=== PATIENT | male | born 1980 | race Caucasian/White ===

== ENCOUNTER 2017-07-13 17:50 | Emergency (ER) | payer MEDICAID ==
[~2017-07-13] VITALS: Ht 185.4 cm; Wt 113.7 kg
[~2017-07-13 17:50] MED LIST: PRED50TA PO
[2017-07-13 17:59] VITALS: BP 153/93
[2017-07-13] MEDS ORDERED: CLIN-79 PO (20:19)
== END 2017-07-13 20:27 | disposition home or self-care (01) ==
LOC: ER 17:50
DX: L02.511 Cutaneous abscess of right hand (principal); F15.10 Other stimulant abuse, uncomplicated; I10 Essential (primary) hypertension; Z86.14 Personal history of Methicillin resistant Staphylococcus aureus infection; Z98.890 Other specified postprocedural states; Z88.0 Allergy status to penicillin; Z79.899 Other long term (current) drug therapy; Z56.0 Unemployment, unspecified
CPT/HCPCS: 99283

== ENCOUNTER 2017-12-23 03:49 | Emergency (ER) | payer MEDICAID ==
[~2017-12-23] VITALS: Ht 185.4 cm; Wt 111.4 kg
[~2017-12-23 03:49] MED LIST changes: +CLIN150C8 PO
[2017-12-23 04:02] VITALS: BP 171/99
[2017-12-23] MEDS ORDERED: proparacaine 0.5% ophthalmic drops 15ml EACHEYE ONE (04:25)
[2017-12-23] MEDS ORDERED: ibuprofen tablet 400 MG TABLET PO ONE (04:25)
[2017-12-23] MEDS ORDERED: erythromycin ophthalmic ointment 1gm tube LEFTEYE ONE (05:20)
== END 2017-12-23 05:56 | disposition home or self-care (01) ==
LOC: ER 03:49
DX: S05.02XA Injury of conjunctiva and corneal abrasion without foreign body, left eye, initial encounter (principal); I10 Essential (primary) hypertension; F15.90 Other stimulant use, unspecified, uncomplicated; Z56.0 Unemployment, unspecified; Z98.890 Other specified postprocedural states; Z88.0 Allergy status to penicillin; Z79.899 Other long term (current) drug therapy; W22.8XXA Striking against or struck by other objects, initial encounter; Y93.01 Activity, walking, marching and hiking; Y92.89 Other specified places as the place of occurrence of the external cause; Y99.9 Unspecified external cause status
CPT/HCPCS: 99283

== ENCOUNTER 2018-05-30 13:43 | Emergency (ER) | payer MEDICAID ==
[~2018-05-30] VITALS: Ht 185.4 cm; Wt 109.0 kg
[2018-05-30 15:16] VITALS: BP 149/97
[2018-05-30 16:45] LABS: HIV ANTIBODY 1&2 RAPID NON-REACTIVE (Neg)
[2018-06-01 15:10] LABS: HEP B CORE AB, IGM Negative (Negative); HEP B CORE AB, TOT Negative (Negative); HEPATITIS C ANTIBODY <0.1 s/co ratio (0.0-0.9)
== END 2018-05-30 15:17 | disposition home or self-care (01) ==
LOC: ER 13:44
DX: S69.82XA Other specified injuries of left wrist, hand and finger(s), initial encounter (principal); I10 Essential (primary) hypertension; F15.90 Other stimulant use, unspecified, uncomplicated; Z56.0 Unemployment, unspecified; Z86.14 Personal history of Methicillin resistant Staphylococcus aureus infection; Z98.890 Other specified postprocedural states; Z88.0 Allergy status to penicillin; Z79.2 Long term (current) use of antibiotics; W27.3XXA Contact with needle (sewing), initial encounter; Y93.89 Activity, other specified; Y92.89 Other specified places as the place of occurrence of the external cause; Y99.8 Other external cause status
CPT/HCPCS: 36415; 86703; 86704; 86705; 86706; 86803; 99283

== ENCOUNTER 2018-11-23 02:27 | Emergency (ER) | payer MEDICAID ==
[~2018-11-23] VITALS: Ht 185.4 cm; Wt 113.6 kg
[~2018-11-23 02:27] MED LIST changes: +CLIN-96 PO
[2018-11-23 02:29] VITALS: BP 157/102
[2018-11-23] MEDS ORDERED: SULF1TAB49 PO (03:04)
== END 2018-11-23 03:45 | disposition home or self-care (01) ==
LOC: ER 02:28
DX: L03.317 Cellulitis of buttock (principal); I10 Essential (primary) hypertension; F15.90 Other stimulant use, unspecified, uncomplicated; F17.200 Nicotine dependence, unspecified, uncomplicated; Z56.0 Unemployment, unspecified; Z98.890 Other specified postprocedural states; Z86.14 Personal history of Methicillin resistant Staphylococcus aureus infection; Z88.0 Allergy status to penicillin; Z79.899 Other long term (current) drug therapy
CPT/HCPCS: 99283

== ENCOUNTER 2019-01-14 16:05 | Emergency (ER) | payer MEDICAID ==
[~2019-01-14] VITALS: Ht 185.4 cm; Wt 100.0 kg
[~2019-01-14 16:05] MED LIST changes: +CLIN-90 PO; -CLIN-96 PO
[2019-01-14] MEDS ORDERED: TETanus/Pertussis (Acell)/Diphther VAC/PF (Tdap-Adult) 0.5ml syringe IMVAC ONE (16:55)
[2019-01-14] MEDS ORDERED: ketorolac trometh inj. 60 MG/2 ML VIAL IM ONE (16:55)
[2019-01-14] MEDS ORDERED: SULF1TAB49 PO (18:51)
[2019-01-14 19:09] VITALS: BP 143/99
== END 2019-01-14 19:10 | disposition home or self-care (01) ==
LOC: ER 16:06
DX: L02.511 Cutaneous abscess of right hand (principal); I10 Essential (primary) hypertension; F17.200 Nicotine dependence, unspecified, uncomplicated; Z98.890 Other specified postprocedural states; Z86.14 Personal history of Methicillin resistant Staphylococcus aureus infection; Z88.0 Allergy status to penicillin; Z79.899 Other long term (current) drug therapy
CPT/HCPCS: 26010; 90471; 90715; 96372; 99283; J1885

== ENCOUNTER 2019-01-31 20:55 | Inpatient (IN) | payer MEDICAID ==
[~2019-01-31] VITALS: Ht 185.4 cm; Wt 111.4 kg
[2019-01-31] MEDS ORDERED: CefTRIAXone/D5W-Rocephin 1gm 50 ML IV ONE (21:45)
[2019-01-31] MEDS ORDERED: vancomycin/NS 1 GM ADD-VANTAGE 250 ML IV ONE (21:45)
[2019-01-31 22:03] LABS: BASOPHILS # (AUTO) 0.1 X10'3 (0-0.2); EOSINOPHILS # (AUTO) 0.4 X10'3 (0-0.9); EOSINOPHILS % (AUTO) 3.1 % (0-6); HEMATOCRIT 41.6 % (42.0-52.0); HEMOGLOBIN 14.1 g/dl (14.0-17.9); LYMPHOCYTES # (AUTO) 2.4 X10'3 (1.1-4.8); LYMPHOCYTES % (AUTO) 20.2 % (21-51); MEAN CORPUSCULAR VOLUME 85.2 FL (78-98); MEAN PLATELET VOLUME 8.5 FL (7.4-10.4); MONOCYTES # (AUTO) 0.9 X10'3 (0-0.9); NEUTROPHILS % (AUTO) 67.7 % (42-75); PLATELET COUNT 339 X10'3 (140-440); RED BLOOD COUNT 4.88 X10'6 (4.70-6.10); RED CELL DISTRIBUTION WIDTH 13.7 % (11.5-14.5); WHITE BLOOD COUNT 11.8 X10'3 (4.5-11.0)
[2019-01-31 22:14] LABS: ALANINE AMINOTRANSFERASE 37 U/L (12-78); ALKALINE PHOSPHATASE 90 IU/L (46-116); ANION GAP 8 (8-16); ASPARTATE AMINO TRANSFERASE 18 U/L (10-37); BILIRUBIN,TOTAL 0.2 MG/DL (0.1-1.0); BLOOD UREA NITROGEN 21 MG/DL (7-18); BUN/CREATININE RATIO 23.1 (5.4-32.0); CHLORIDE 104 MMOL/L (99-107); CREATININE 0.91 MG/DL (0.60-1.10); GLUCOSE 93 MG/DL (70-104); POTASSIUM 3.6 MMOL/L (3.5-5.1); SODIUM 139 MMOL/L (135-145); TOTAL CARBON DIOXIDE 26.7 MMOL/L (24-32); TOTAL PROTEIN 8.1 G/DL (6.4-8.2); eGFR > 90 ML/MIN
[2019-01-31] MEDS ORDERED: NO HOME MEDS (23:31)
[2019-02-01] MEDS ORDERED: magnesium hydroxide 30ml (MOM) UD suspension PO PRN (01:05)
[2019-02-01] MEDS ORDERED: ipratropium/albuterol 3ml nebule NEB PRN (01:05)
[2019-02-01] MEDS ORDERED: magnesium 4gm in 100ml NS 100 ML IV PRN (01:05)
[2019-02-01] MEDS ORDERED: potassium Cl 20 mEq SR tablet PO PRN ×2 (01:05)
[2019-02-01] MEDS ORDERED: acetaminophen 325mg tablet PO PRN (01:05)
[2019-02-01] MEDS ORDERED: HYDROmorphone 1 mg/ml syringe IV PRN (01:05)
[2019-02-01] MEDS ORDERED: CefTRIAXone/D5W-Rocephin 1gm 50 ML IV ONE (01:05)
[2019-02-01] MEDS ORDERED: mag hydrox/Alum hydrox/simeth 30ml oral suspension PO PRN (01:05)
[2019-02-01] MEDS ORDERED: magnesium 2GM in 50ml NS 50 ML IV PRN (01:05)
[2019-02-01] MEDS ORDERED: HYDROmorphone inj. 0.5 MG/0.5 ML DISP.SYRIN IV PRN (01:05)
[2019-02-01] MEDS ORDERED: ondansetron/PF 4mg/2ml inj IV PRN (01:05)
[2019-02-01] MEDS ORDERED: potassium CL 10mEq/100ml bag 100 ML IV PRN ×2 (01:05)
[2019-02-01] MEDS: normal saline 1000ml 1,000 ML IV SCH ×3 (01:36→13:04)
[2019-02-01 01:50] LABS: C-REACTIVE PROTEIN 0.67 MG/DL (0.0-0.5)
[2019-02-01 02:25] VITALS: BP 160/101
[2019-02-01] MEDS: nicotine 14mg patch - 24hr TD SCH ×2 (03:03→08:00)
--- NOTE | 2019-02-01 06:12 | NUR ---
Problems reprioritized. Patient report given, questions answered & plan of care reviewed with PARK GONZALES.
[2019-02-01] MEDS: enoxaparin 40mg/0.4ml syringe SQ SCH (08:00)
[2019-02-01] MEDS: K and/or MAG REPLACEMENT MC SCH ×2 (08:36→20:00)
[2019-02-01 10:39] VITALS: BP 135/77
--- NOTE | 2019-02-01 11:00 | NUR ---
Patient in room ORTHO 4021. I have received report from JANET NICK and had the opportunity to ask questions and assume patient care.
--- NOTE | 2019-02-01 13:27 | NUR ---
WOUND INFECTION EDUCATION PROVIDED BY WOUND CARE 1. Patient instructed to call their primary doctor, or go the ED immediately if any of the following symptoms occur: * Increased pain in wound * Increase in drainage from the wound * Redness in the skin surrounding the wound * Warmth in the skin surrounding the wound * Bleeding from the wound * Temperature of 101 or greater 2. If any of these occur while in the hospital tell a nurse immediately. Addendum: 02/01/19 at 1328 by Wilton Pierre RN Amended: Links added.
[2019-02-01 18:00] VITALS: BP 143/67
--- NOTE | 2019-02-01 18:15 | NUR ---
Problems reprioritized. Patient report given, questions answered & plan of care reviewed with MULU NICK.
[2019-02-01] MEDS: CefTRIAXone/D5W-Rocephin 1gm 50 ML IV SCH (20:32)
[2019-02-01] MEDS: lactobacillus rhamnosus 10,000 MMU CELLS/CAPSULE PO SCH (20:32)
[2019-02-01 22:00] VITALS: BP 136/66
[2019-02-02] MEDS: normal saline 1000ml 1,000 ML IV SCH (02:59)
[2019-02-02] MEDS ORDERED: VANCOMYCIN LEVEL IV ONE (04:30)
[2019-02-02 05:14] LABS: BASOPHILS # (AUTO) 0.1 X10'3 (0-0.2); BASOPHILS % (AUTO) 1.3 % (0-1); EOSINOPHILS # (AUTO) 0.5 X10'3 (0-0.9); EOSINOPHILS % (AUTO) 5.7 % (0-6); HEMATOCRIT 40.7 % (42.0-52.0); HEMOGLOBIN 13.8 g/dl (14.0-17.9); LYMPHOCYTES # (AUTO) 2.1 X10'3 (1.1-4.8); LYMPHOCYTES % (AUTO) 26.5 % (21-51); MEAN CORPUSCULAR HGB CONC 33.9 g/dL (33.0-36.5); MEAN CORPUSCULAR VOLUME 85.5 FL (78-98); MEAN PLATELET VOLUME 8.7 FL (7.4-10.4); MONOCYTES # (AUTO) 0.9 X10'3 (0-0.9); MONOCYTES % (AUTO) 11.1 % (2-12); NEUTROPHILS # (AUTO) 4.4 X10'3 (1.8-7.7); NEUTROPHILS % (AUTO) 55.4 % (42-75); PLATELET COUNT 324 X10'3 (140-440); RED BLOOD COUNT 4.76 X10'6 (4.70-6.10); RED CELL DISTRIBUTION WIDTH 13.5 % (11.5-14.5)
[2019-02-02 05:25] LABS: ALANINE AMINOTRANSFERASE 35 U/L (12-78); ALBUMIN 3.2 G/DL (3.4-5.0); ALBUMIN/GLOBULIN RATIO 0.9 (1.1-1.5); ALKALINE PHOSPHATASE 76 IU/L (46-116); ANION GAP 7 (8-16); ASPARTATE AMINO TRANSFERASE 16 U/L (10-37); BILIRUBIN,TOTAL 0.1 MG/DL (0.1-1.0); BLOOD UREA NITROGEN 17 MG/DL (7-18); BUN/CREATININE RATIO 18.9 (5.4-32.0); CALCIUM 8.8 MG/DL (8.5-10.1); CHLORIDE 108 MMOL/L (99-107); GLUCOSE 95 MG/DL (70-104); POTASSIUM 4.1 MMOL/L (3.5-5.1); SODIUM 142 MMOL/L (135-145); TOTAL CARBON DIOXIDE 26.9 MMOL/L (24-32); TOTAL PROTEIN 6.9 G/DL (6.4-8.2); eGFR > 90 ML/MIN
[2019-02-02 06:00] VITALS: BP 152/85
--- NOTE | 2019-02-02 06:13 | NUR ---
Patient in room ORTHO 4021. I have received report from MULU NICK and had the opportunity to ask questions and assume patient care.
[2019-02-02] MEDS: lactobacillus rhamnosus 10,000 MMU CELLS/CAPSULE PO SCH ×2 (07:49→20:23)
--- NOTE | 2019-02-02 07:50 | NUR ---
PATIENT STATED HIS NICOTINE PATCH FELL OFF LAST NIGHT AND HE THREW IT AWAY. REFUSED PATCH THIS AM.
[2019-02-02] MEDS: enoxaparin 40mg/0.4ml syringe SQ SCH (07:52)
[2019-02-02] MEDS: nicotine 14mg patch - 24hr TD SCH (07:52)
[2019-02-02] MEDS: K and/or MAG REPLACEMENT MC SCH ×2 (07:55→20:00)
[2019-02-02 10:00] VITALS: BP 151/77
--- NOTE | 2019-02-02 12:48 | NUR ---
PATIENT LIVES EMILIANO RAM MD. SHE IS WILLING TO HELP WITH HOME ANTIBIOTICS. [phone].
--- NOTE | 2019-02-02 15:06 | NUR ---
PAGER ID: [phone] MESSAGE: JASON [id number] RE: ANNA MARIE [phone] CAN WE DECREASE THE FLUISD OR DC? PT DRINKING AND PEEING A TON.
[2019-02-02 18:00] VITALS: BP 132/87
--- NOTE | 2019-02-02 18:12 | NUR ---
Problems reprioritized. Patient report given, questions answered & plan of care reviewed with HITESH NICK.
--- NOTE | 2019-02-02 19:00 | NUR ---
Patient in room ORTHO 4021. I have received report from Dequan NICK and had the opportunity to ask questions and assume patient care.
[2019-02-02] MEDS: CefTRIAXone/D5W-Rocephin 1gm 50 ML IV SCH (20:22)
[2019-02-02 22:00] VITALS: BP 121/68
[2019-02-03] MEDS: normal saline 1000ml 1,000 ML IV SCH (00:08)
[2019-02-03 06:00] VITALS: BP 110/65
--- NOTE | 2019-02-03 06:00 | NUR ---
Patient in room ORTHO 4021. I have received report from HITESH NICK and had the opportunity to ask questions and assume patient care.
[2019-02-03 07:05] LABS: BASOPHILS # (AUTO) 0.1 X10'3 (0-0.2); BASOPHILS % (AUTO) 1.3 % (0-1); EOSINOPHILS # (AUTO) 0.5 X10'3 (0-0.9); EOSINOPHILS % (AUTO) 5.8 % (0-6); HEMOGLOBIN 14.5 g/dl (14.0-17.9); LYMPHOCYTES # (AUTO) 2.2 X10'3 (1.1-4.8); LYMPHOCYTES % (AUTO) 23.9 % (21-51); MEAN CORPUSCULAR HEMOGLOBIN 28.6 PG (27.0-31.0); MEAN CORPUSCULAR HGB CONC 33.6 g/dL (33.0-36.5); MEAN CORPUSCULAR VOLUME 84.9 FL (78-98); MEAN PLATELET VOLUME 8.2 FL (7.4-10.4); MONOCYTES % (AUTO) 11.4 % (2-12); NEUTROPHILS # (AUTO) 5.2 X10'3 (1.8-7.7); NEUTROPHILS % (AUTO) 57.6 % (42-75); PLATELET COUNT 331 X10'3 (140-440); RED BLOOD COUNT 5.07 X10'6 (4.70-6.10); RED CELL DISTRIBUTION WIDTH 13.7 % (11.5-14.5)
[2019-02-03 07:27] LABS: ALANINE AMINOTRANSFERASE 41 U/L (12-78); ALBUMIN 3.4 G/DL (3.4-5.0); ALBUMIN/GLOBULIN RATIO 0.9 (1.1-1.5); ALKALINE PHOSPHATASE 76 IU/L (46-116); ANION GAP 8 (8-16); ASPARTATE AMINO TRANSFERASE 16 U/L (10-37); BILIRUBIN,TOTAL 0.2 MG/DL (0.1-1.0); BLOOD UREA NITROGEN 17 MG/DL (7-18); BUN/CREATININE RATIO 19.5 (5.4-32.0); CALCIUM 8.7 MG/DL (8.5-10.1); CHLORIDE 106 MMOL/L (99-107); CREATININE 0.87 MG/DL (0.60-1.10); GLUCOSE 89 MG/DL (70-104); POTASSIUM 4.3 MMOL/L (3.5-5.1); SODIUM 139 MMOL/L (135-145); TOTAL CARBON DIOXIDE 25.4 MMOL/L (24-32); TOTAL PROTEIN 7.2 G/DL (6.4-8.2); eGFR > 90 ML/MIN
[2019-02-03] MEDS: lactobacillus rhamnosus 10,000 MMU CELLS/CAPSULE PO SCH (07:27)
[2019-02-03] MEDS: nicotine 14mg patch - 24hr TD SCH (07:28)
[2019-02-03] MEDS: enoxaparin 40mg/0.4ml syringe SQ SCH (07:28)
[2019-02-03] MEDS: K and/or MAG REPLACEMENT MC SCH (08:00)
[2019-02-03 10:00] VITALS: BP 152/99
[2019-02-03] MEDS ORDERED: RIFA300C4 PO (13:21)
[2019-02-03] MEDS ORDERED: LEVO750T21 PO (13:21)
--- NOTE | 2019-02-03 14:20 | NUR ---
PATIENT DISCHARGED HOME SAFELY WITH S.O. PRESCRIPTION FAXED TO [facility] ON [address]. PATIENT GIVEN WOUND CARE INSTRUCTIONS AND SUPPLIES. PATIENT VERBALIZES UNDERSTANDING OF ALL DC INSTRUCTIONS.
== END 2019-02-03 14:20 | disposition home or self-care (01) | DRG 344 ==
LOC: ER 20:55 → ED HOLD 02-01 01:03 → EDBEDREQ 02-01 01:54 → ORTHO 4S 02-01 02:20
PROVIDERS: ADMIT Family Medicine; ATTEND Internal Medicine
DX: M86.8X8 Other osteomyelitis, other site (principal); F15.10 Other stimulant abuse, uncomplicated; F17.210 Nicotine dependence, cigarettes, uncomplicated; S60.351A Superficial foreign body of right thumb, initial encounter; X58.XXXA Exposure to other specified factors, initial encounter; I10 Essential (primary) hypertension; L03.011 Cellulitis of right finger; Z88.0 Allergy status to penicillin; Y93.89 Activity, other specified; Y92.89 Other specified places as the place of occurrence of the external cause; Y99.8 Other external cause status; Z71.51 Drug abuse counseling and surveillance of drug abuser
CPT/HCPCS: 36415; 80053; 80202; 83605; 83735; 85025; 85651; 86140; 87040; 87081; 94760; 96365; 96368; 99285; G0378; J0696; J1650; J3370; J7030

== ENCOUNTER 2019-03-12 10:47 | Emergency (ER) | payer MEDICAID ==
[~2019-03-12] VITALS: Ht 185.4 cm; Wt 113.6 kg
[~2019-03-12 10:47] MED LIST changes: -CLIN-90 PO; -CLIN150C8 PO; +LEVO750T21 PO; +NO HOME MEDS; -PRED50TA PO; +RIFA300C4 PO
[2019-03-12 10:48] VITALS: BP 149/99
[2019-03-12] MEDS ORDERED: ondansetron 4mg rapidly disintigrating tab PO ONE (12:00)
[2019-03-12] MEDS ORDERED: HYDROcodone/acetaminophen 10/325mg tab PO ONE (12:00)
[2019-03-12] MEDS ORDERED: HYDR-4383 PO (12:33)
[2019-03-12] MEDS ORDERED: ONDA4TAB6 PO (12:33)
== END 2019-03-12 12:37 | disposition home or self-care (01) ==
LOC: ER 10:47
DX: M25.562 Pain in left knee (principal); I10 Essential (primary) hypertension; F15.90 Other stimulant use, unspecified, uncomplicated; Z86.14 Personal history of Methicillin resistant Staphylococcus aureus infection; Z98.890 Other specified postprocedural states; Z88.0 Allergy status to penicillin; Z79.2 Long term (current) use of antibiotics; V19.9XXA Pedal cyclist (driver) (passenger) injured in unspecified traffic accident, initial encounter; Y93.55 Activity, bike riding; Y92.413 State road as the place of occurrence of the external cause; Y99.9 Unspecified external cause status
CPT/HCPCS: 29505; 73564; 99283

== ENCOUNTER 2024-09-10 18:49 | Emergency (ER) | payer MEDICAID ==
[~2024-09-10] VITALS: Ht 185.4 cm; Wt 122.0 kg
[~2024-09-10 18:49] MED LIST changes: +HYDR-4383 PO; -LEVO750T21 PO; +ONDA4TAB6 PO; -RIFA300C4 PO; +RIFA300C65 PO
[2024-09-10 20:24] VITALS: PULSE 103
--- NOTE | 2024-09-10 21:41 | Physician Documentation ---
History of Present Illness ~ Chief Complaint: Leg Pain Stated Complaint: RT FOOT PAIN Time Seen by MD: 20:20 Primary Medical Doctor: [facility] Mode of Arrival: POV HPI 43 year old male with RLE swelling/edema after a knee injury several days ago for which he was seen at [facility] and had an xray of the R knee which was negative. Since that time he has experienced R knee instability and is using a knee brace. He has developed swelling distally down to his ankle since the injury and became concerned. Denies fever, N/V/D, cough, chest pain, shortness of breath. Tetanus witin 5 years: No Medication Reconciliation Allergies: Coded Allergies: Penicillins (Unverified Allergy, Intermediate, 01/31/19) Scheduled Hydrocodone/Acetaminophen ([place] 5-325 Tablet), 1 TAB PO TID PRN Ondansetron Hcl (Zofran), 1 TAB PO Q6H Rifampin (Rifampin), 1 TAB PO BID Miscellaneous Medications Home Med List (No Home Medications), (Reported) Past Medical History Past Medical History: Hypertension, MRSA Abscess, *PSYCH* Past Surgical History: orthopedic surgeries Patient History: FH: abdominal aortic aneurysm Paternal Grandfather FH: brain aneurysm Brother Smoking Status: Current every day smoker Alcohol Use: Rarely Drug Use: methamphetamine Lives with: Spouse, Family Lives In: Home Occupation: employed Review of Systems All Other Systems at this time: Reviewed and Negative Physical Exam Vital Signs: Temperature: 98.4, Heart Rate: 103, Respiratory Rate: 18, BP: 164/116, Pulse Oximetry: 98, Weight: 121.950 Oxygen Flow Rate: 0 Physical Exam HEENT: PERRL, moist oral mucosa, EOMI Pulmonary: No respiratory distress MSK: no deformity; RLE with 1-2+ pitting edema from ankle to knee. No erythema, warmth Skin: w/d/i, no rash Neuro: alert, nonfocal Psych: normal affect Progress Results/Orders Results/Orders Orders - LILA ANDRES MD Vl Venous (09/10/24 20:32) Vital Signs 09/10/24 09/10/24 09/10/24 19:01 20:22 20:24 Temp 98.4 Pulse 109 103 Resp 16 18 B/P (MAP) 157/101 164/116 (132) Pulse Ox 99 98 O2 Flow Rate 0 Medical Decision Making Findings 43 year old male with R knee injury. DVT US negative for DVT. Counseled that this is likely a severe ligamentous injury of the R knee and to follow up with PCP/ortho and possible MRI. Additional Comment Ddx = DVT, post injury edema, ligamentous injury of the R knee Departure Disposition: HOME / SELF CARE / HOMELESS Impression: Primary Impression: Knee injury Additional Impression: Edema Condition: Stable Discharge Instructions: Edema Referrals: NO PRIMARY CARE PROVIDER (PCP) Education Educated: Patient Educated regarding: diagnosis, treatment, prognosis, need for follow up Signature Scribe Signature: . Attestation: . LILA ANDRES MD Sep 10, 2024 21:41
--- NOTE | 2024-09-10 21:56 | VASCULAR REPORT ---
Right lower extremity venous duplex Clinical History: Right lower extremity calf pain status post knee trauma Comparison: None Technique: Duplex Doppler evaluation of the deep venous system of the right lower extremity from the common femo ral vein to the popliteal vein including color Doppler and spectral/pulsed waveform analysis was perf ormed. Findings: The common femoral vein demonstrates appropriate compressibility and waveform variability. There is compressibility/patency of the great saphenous vein at the proximal thigh. The femoral vein demonstrates appropriate compressibility and waveform variability. The deep femoral vein demonstrates appropriate compressibility and waveform variability. The popliteal vein demonstrates appropriate compressibility and waveform variability. Acute occlusive thrombus identified within the posterior tibial and peroneal veins. Impression: 1. Acute occlusive thrombus of the posterior tibial and peroneal veins. 2. Contralateral common femoral vein is patent.
[2024-09-10 22:01] VITALS: BP 153/106; RESP 18; TEMP 98.4; O2SAT 98
== END 2024-09-10 22:22 | disposition home or self-care (01) ==
LOC: ER 18:50
DX: S89.91XA Unspecified injury of right lower leg, initial encounter (principal); I10 Essential (primary) hypertension; F17.200 Nicotine dependence, unspecified, uncomplicated; Z88.0 Allergy status to penicillin; Z88.8 Allergy status to other drugs, medicaments and biological substances; X58.XXXA Exposure to other specified factors, initial encounter; Y93.89 Activity, other specified; Y92.89 Other specified places as the place of occurrence of the external cause; Y99.8 Other external cause status
CPT/HCPCS: 93971; 99284

== ENCOUNTER 2024-12-03 20:46 | Emergency (ER) | payer SELFPAY ==
[~2024-12-03] VITALS: Ht 185.4 cm; Wt 97.0 kg
[2024-12-03 20:50] VITALS: TEMP 97.6
--- NOTE | 2024-12-03 21:09 | RADIOLOGY REPORT ---
EXAM: DI HAND, COMPLETE (3VW MIN) INDICATION: HAND PAIN TECHNIQUE: 3 views of the right hand COMPARISON: None FINDINGS/IMPRESSION: No radiographic evidence of an acute osseous abnormality. There is no acute fracture, osseous malalignment, or aggressive focal osseous lesion. Small well corticated osseous lucency of the distal pole of the scaphoid.
[2024-12-03 22:01] VITALS: BP 144/95; PULSE 99; RESP 20; O2SAT 98
[2024-12-03] MEDS ORDERED: DOXY-462 PO (22:02)
--- NOTE | 2024-12-03 22:03 | Physician Documentation ---
History of Present Illness ~ Chief Complaint: Hand pain Stated Complaint: R HAND SWELLING Time Seen by MD: 21:54 Primary Medical Doctor: [facility] Source: patient Mode of Arrival: POV Exam Limitations: no limitations HPI Presents after stabbing his left hand with a screwdriver on two separate occasions four days ago. This morning with erythema and swelling to his left hand. No fevers or chills. CMS is intact. Tetanus within 5 years: No Medication Reconciliation Allergies: Coded Allergies: Penicillins (Unverified Allergy, Intermediate, 12/03/24) Scheduled Doxycycline Monohydrate (Doxycycline Monohydrate), 1 CAP PO Q12H Hydrocodone/Acetaminophen ([place] 5-325 Tablet), 1 TAB PO TID PRN Ondansetron Hcl (Zofran), 1 TAB PO Q6H Rifampin (Rifampin), 1 TAB PO BID Miscellaneous Medications Home Med List (No Home Medications), (Reported) Past Medical History Past Medical History: Hypertension, MRSA Abscess, *PSYCH* Past Surgical History: orthopedic surgeries Patient History: FH: abdominal aortic aneurysm Paternal Grandfather FH: brain aneurysm Brother Alcohol Use: Rarely Drug Use: methamphetamine Lives with: Spouse, Family Lives In: Home Occupation: employed Review of Systems ROS Review of systems negative except documented in HPI. Physical Exam Vital Signs: RN Vital Signs have been reviewed: Yes, Temperature: 97.6, Source: Temporal, Heart Rate: 115, Respiratory Rate: 15, BP: 197/100, Pulse Oximetry: 98, Weight: 97.050 Pulse Oximetry Reflects: adequate oxygenation Physical Exam General: Awake, alert, oriented. No apparent distress Respiratory: Lungs are clear to auscultation bilaterally. No respiratory distress. Chest: Normal shape and size. No accessory muscle use. Cardiovascular: Regular rate and rhythm. S1-S2. No murmur, gallop, rub. Extremities: No lower extremity edema, cyanosis or clubbing. Neurologic: Alert and oriented x4. Nonfocal Psychiatric: Normal mood and affect. Skin: Normal color. Warm and dry. Left hand with erythema and swelling to the wrist. CMS is intact. He is able to make a fist. Swelling on the dorsum surface of the hand. Progress Results/Orders Results/Orders Completed Orders - GUIDO LEPE NP Doxycycline 100mg Capsule (Vibramycin 10 (12/03/24 22:03) Medications Received in ER Medications (Trade) Dose Ordered Sig/Wilfrid Route PRN Reason Start Time Stop Time Status Last Admin Dose Admin (VIBRAMYCIN 100mg capsule) 100 mg ONCE STAT PO 12/03/24 22:03 12/03/24 22:05 DC 12/03/24 22:07 100 MG Vital Signs 12/03/24 12/03/24 20:50 22:01 Temp 97.6 Pulse 115 99 Resp 15 20 B/P (MAP) 197/100 144/95 (111) Pulse Ox 98 98 EKG/XRAY/CT/US/VASC/MRI Bone/Soft Tissue X-Ray (Ext.) : Interpreted By: both Views: 3 VIEW Indication: pain Location: hand Impression: normal Additional Comment [address] [address] DIAGNOSTIC RADIOLOGY Patient: KRYS THRASHER Medical Record: [id number] [facility] : 1980, Age: 44 Sex: Male Location: ER Patient Status: [facility] ER Service Date/Time: 12/03/242052 Ordering Physician: CARSON DE LOS SANTOS DO Exam: HAND, COMPLETE (3VW MIN) EXAM: DI HAND, COMPLETE (3VW MIN) INDICATION: HAND PAIN TECHNIQUE: 3 views of the right hand COMPARISON: None FINDINGS/IMPRESSION: No radiographic evidence of an acute osseous abnormality. There is no acute fracture, osseous malalignment, or aggressive focal osseous lesion. Small well corticated osseous lucency of the distal pole of the scaphoid. Electronically Signed by:DHIRAJ JORDAN MD Date & Time: 12/03/242106 Dictated by: DHIRAJ JORDAN MD Dictation date and time: 12/03/242100 Primary Care Provider: NO PRIMARY CARE PROVIDER cc: CARSON DE LOS SANTOS DO ~ Medical Decision Making Findings Patient presents secondary to left hand swelling and erythema after injury with a screwdriver. He has not no signs and symptoms of systemic infection. Afebrile. Eve CMS is intact. He has full range of motion. We will be treated for cellulitis. Return instructions given. Departure Time of Disposition: 22:00 Disposition: 01 HOME / SELF CARE / HOMELESS Impression: Primary Impression: Cellulitis Qualified Codes: L03.114 - Cellulitis of left upper limb Additional Impression: Hypertension Qualified Codes: I10 - Essential (primary) hypertension Condition: Stable Discharge Instructions: Cellulitis, Adult, [id number] Additional Instructions: Take your antibiotics to completion. Return for new or worsening symptoms. One or more of your blood pressures was elevated. Please follow up with primary care/[facility]. Recommend home monitoring of your blood pressure. Referrals: NO PRIMARY CARE PROVIDER (PCP) Prescriptions Doxycycline Monohydrate (Doxycycline Monohydrate) 100 Mg Capsule 1 CAP PO Q12H for 7 Days, #14 CAP Prov: GUIDO LEPE NP 12/03/24 Education Educated: Patient Educated regarding: diagnosis, treatment, need for follow up Signature Scribe Signature: No scribe Attestation: The note accurately reflects work and decisions made by me.Guido Lepe - LUI 12/04/24 00:07 This note was created with the assistance of voice recognition software whereby errors in grammar, syntax, and/or spelling may have occurred despite active proofreading efforts by the author. Please do not hesitate to contact the provider for clarification or for questions regarding the content of this document. GUIDO LEPE NP Dec 03, 2024 22:03
[2024-12-03] MEDS: DOXYCYCLINE 100MG CAPSULE PO STA (22:07)
== END 2024-12-03 22:14 | disposition home or self-care (01) ==
LOC: ER 20:47
DX: L03.114 Cellulitis of left upper limb (principal); I10 Essential (primary) hypertension; Z88.0 Allergy status to penicillin; Z88.8 Allergy status to other drugs, medicaments and biological substances
CPT/HCPCS: 73130; 99283